=== PATIENT | female | born 1990 | race African-American/Black ===

== ENCOUNTER 2025-04-26 15:19 | Emergency (ER) | payer OTHER ==
[~2025-04-26] VITALS: Ht 172.7 cm; Wt 136.1 kg
[2025-04-26] MEDS ORDERED: OXYC-128 PO (17:24)
[2025-04-26] MEDS ORDERED: NALO4SPR BNOSTRILS (17:24)
[2025-04-26] MEDS ORDERED: ALPR1TAB2 PO (17:24)
[2025-04-26] MEDS ORDERED: GABA300C PO (17:26)
[2025-04-26] MEDS ORDERED: PROM6.2516 PO (17:26)
[2025-04-26 17:33] VITALS: BP 126/78; TEMP 98.7; O2SAT 97
== END 2025-04-26 17:33 | disposition home or self-care (01) ==
LOC: ER 15:26
DX: F41.9 Anxiety disorder, unspecified (principal); F17.200 Nicotine dependence, unspecified, uncomplicated; F32.A Depression, unspecified; F43.10 Post-traumatic stress disorder, unspecified; G89.29 Other chronic pain; Z76.0 Encounter for issue of repeat prescription; Z60.2 Problems related to living alone
CPT/HCPCS: A4606; A4663